=== PATIENT | female | born 1985 | race Asian ===

== ENCOUNTER → 2017-03-29 | Outpatient (CLI) | payer BC | LOC: CIMAGING 07:10 | PROVIDERS: ATTEND Obstetrics & Gynecology | DX: N93.9 Abnormal uterine and vaginal bleeding, unspecified (principal) | CPT/HCPCS: 76856-PO ==

== ENCOUNTER → 2018-09-05 | Outpatient (CLI) | payer BC | LOC: CIMAGING 16:04 | PROVIDERS: ATTEND Family Medicine | DX: M54.41 Lumbago with sciatica, right side (principal); M47.9 Spondylosis, unspecified; M43.16 Spondylolisthesis, lumbar region | CPT/HCPCS: 72100-PO ==

== ENCOUNTER → 2018-10-06 | Outpatient (CLI) | payer BC | LOC: FIMAGING 08:06 | PROVIDERS: ATTEND Neurological Surgery | DX: M48.07 Spinal stenosis, lumbosacral region (principal); M51.36 Other intervertebral disc degeneration, lumbar region; M51.27 Other intervertebral disc displacement, lumbosacral region ==